=== PATIENT | male | born 1940 | race Caucasian/White ===

== ENCOUNTER 2024-10-04 18:01 | Emergency (ER) | payer MEDICARE, BC ==
[~2024-10-04] VITALS: Ht 177.8 cm; Wt 74.5 kg
[2024-10-04 18:34] VITALS: BP 159/76; PULSE 73; O2SAT 97
[2024-10-04] MEDS: HYDROcodone/acetaminophen 10/325mg tab PO ONE (18:45)
--- NOTE | 2024-10-04 19:08 | RADIOLOGY REPORT ---
CLINICAL INDICATION: left foot pain TECHNIQUE: 3 radiographic views of the left foot were obtained. Comparison: None FINDINGS/IMPRESSION: There is no evidence of acute fracture or dislocation. Questionable Old fracture deformity of the 5th metatarsal base. The visualized joint space is well maintained. Small posterior calcaneal bony spur. The alignment is anatomical. There is no radiopaque foreign body.
--- NOTE | 2024-10-04 19:09 | RADIOLOGY REPORT ---
CLINICAL INDICATION: ANKLE PAIN TECHNIQUE: 3 radiographic views of the left ankle were obtained. Comparison: None FINDINGS/IMPRESSION: There is no evidence of acute fracture or dislocation. The visualized joint space is well maintained. Small posterior calcaneal bony spur. The alignment is anatomical. There is no radiopaque foreign body.
[2024-10-04 20:12] VITALS: RESP 16
--- NOTE | 2024-10-04 20:37 | Physician Documentation ---
History of Present Illness ~ Chief Complaint: Ankle pain Stated Complaint: LT FOOT PAIN Time Seen by MD: 19:49 HPI Patient is seen today with complaints of pain of his left foot. Patient denies any specific trauma to the area and he states he is very active and walks 4 mile s times a week and stays very active and fit and dances every weekend. Patient denies any chest pain or shortness of breath or abdominal pain or nausea, vomiting, diarrhea. Patient has no other concern or complaint at this time. Patient does admit to history of gout but states this does not feel like a gout attack. Patient states he did start a new blood pressure medicine a combo pill with amlodipine but is not show the other medication that was added by Dr. Escalante's office. He states he started that three days ago. Tetanus witin 5 years: No Medication Reconciliation Allergies: Coded Allergies: No Known Allergies (Unverified , 10/04/24) Review of Systems Constitutional: Denies: chills, fever, weakness Eyes: Denies: pain, blurred vision ENT: Denies: ear pain, nose pain, throat pain, mouth pain Respiratory: Denies: cough, shortness of breath Cardiovascular: Denies: chest pain, palpitations Gastrointestinal: Denies: abdominal pain, nausea, vomiting Genitourinary: Denies: burning, dysuria Male Genitalia: Denies: penile discharge, testicular pain Neurological: Denies: headache, dizziness Musculoskeletal: Denies: pain, swelling Integumentary: Denies: rash, lesions Allergic/Immunologic: Denies: hives, itching Hematologic/Lymphatic: Denies: no symptoms reported Psychiatric: Denies: depression, anxiety Physical Exam Vital Signs: Temperature: 98.6, Source: Oral, Heart Rate: 73, Respiratory Rate: 16, BP: 159/76, Pulse Oximetry: 97, Weight: 74.550 Oxygen Flow Rate: 0 Physical Exam General: Awake and Alert, no acute distress. HEENT: Conjunctiva pink, Sclera clear, Mucus Membranes moist. Neck: Supple without masses and tenderness. Musculoskeletal: Patient on exam has no sign of erythema or warmth or swelling of the left foot or ankle. Patient does have tenderness to palpation in the plantar aspect of his left foot. Patient has near full range of motion of the left ankle. Patient has no tenderness to palpation of the any other bony prominence including the base of the 5th metatarsal or lateral or medial ma lleoli. Patient is neurovascularly intact distally. Motor function and strength intact distally. Extremities: No cyanosis,clubbing or edema. Skin: Warm and Dry. Progress Results/Orders Results/Orders Orders - SUSAN ARMANDO PAC Foot, Complete (3vw Min) (10/04/24 18:52) Completed Orders - SUSAN ARMANDO PAC Foot, Complete (3vw Min) (10/04/24 18:52) Medications Received in ER Medications (Trade) Dose Ordered Sig/Lita Route PRN Reason Start Time Stop Time Status Last Admin Dose Admin ([place] 10/325mg tab) 1 tab ONCE ONCE PO 10/04/24 18:40 10/04/24 18:42 DC 10/04/24 18:45 1 TAB Vital Signs 10/04/24 10/04/24 10/04/24 18:34 18:45 20:12 Temp 98.6 Pulse 73 Resp 18 16 16 B/P (MAP) 159/76 Pulse Ox 97 O2 Flow Rate 0 Medical Decision Making Findings Patient is seen today with complaints of pain of his left foot. Patient denies any specific trauma to the area and he states he is very active and walks 4 miles times a week and stays very active and fit and dances every weekend. Patient denies any chest pain or shortness of breath or abdominal pain or nausea, vomiting, diarrhea. Patient has no other concern or complaint at this time. Patient does admit to history of gout but states this does not feel like a gout attack. Patient states he did start a new blood pressure medicine a combo pill with amlodipine but is not show the other medication that was added by Dr. Escalante's office. He states he started that three days ago. Patient did have x-ray taken of the left foot and ankle that showed no sign of acute fracture. Patient will follow up with primary care for referral to physical therapy and/or to solar project coordination specialist or digital marketing executive office for further eval and treatment in his pain in his left foot. Patient will take Tylenol as needed for pain and will consult with his tug hand if he can take ibuprofen or any other NSAID for pain due to taking his blood thinner clopidogrel. Departure Disposition: 01 HOME / SELF CARE / HOMELESS Impression: Primary Impression: Plantar fasciitis of left foot Additional Impression: Foot pain Qualified Codes: M79.672 - Pain in left foot Condition: Stable Discharge Instructions: Plantar Fasciitis Rehab Additional Instructions: Patient did have x-ray taken of the left foot and ankle that showed no sign of acute fracture. Patient will follow up with primary care for referral to p hysical therapy and/or to solar project coordination specialist or digital marketing executive office for further eval and treatment in his pain in his left foot. Patient will take Tylenol as needed for pain and will consult with his tug hand if he can take ibuprofen or any other NSAID for pain due to taking his blood thinner clopidogrel. Referrals: NO PRIMARY CARE PROVIDER (PCP) Signature Scribe Signature: No scribe Attestation: No scribe SUSAN ARMANDO PAC Oct 04, 2024 20:37
[2024-10-04 20:45] VITALS: TEMP 98.6
== END 2024-10-04 20:45 | disposition home or self-care (01) ==
LOC: ER 18:03
DX: M72.2 Plantar fascial fibromatosis (principal); M79.672 Pain in left foot
CPT/HCPCS: 73610; 73630; 99284